=== PATIENT | male | born 1970 | race African-American/Black ===

== ENCOUNTER 2025-08-02 19:10 | Emergency (ER) | payer SELFPAY ==
[~2025-08-02] VITALS: Ht 175.3 cm; Wt 89.3 kg
[2025-08-02 21:54] VITALS: O2SAT 100
[2025-08-02 22:00] VITALS: TEMP 36.7
[2025-08-02] MEDS: KETOROLAC 30MG/ML VIAL IM ONE (22:11)
[2025-08-02] MEDS ORDERED: IBUP-1455 MT (22:32)
[2025-08-02 22:46] VITALS: BP 149/94; PULSE 71; RESP 16; O2SAT 100
== END 2025-08-02 22:50 | disposition home or self-care (01) ==
LOC: ER 19:10
DX: S20.212A Contusion of left front wall of thorax, initial encounter (principal); F17.200 Nicotine dependence, unspecified, uncomplicated; Z71.6 Tobacco abuse counseling; X58.XXXA Exposure to other specified factors, initial encounter; Y93.89 Activity, other specified; Y92.89 Other specified places as the place of occurrence of the external cause; Y99.8 Other external cause status
CPT/HCPCS: 71101; 96372; 99283; J1885; Z7610